=== PATIENT | male | born 1950 | race Caucasian/White ===

== ENCOUNTER → 2022-01-29 10:03 | Outpatient (REF) | payer MEDICARE, OTHER, SELFPAY | LOC: ANHLAB 10:03 | PROVIDERS: PCP Family Medicine; Visit Provider Nurse Practitioner | DX: C44.329 Squamous cell carcinoma of skin of other parts of face (principal); L81.4 Other melanin hyperpigmentation | CPT/HCPCS: 88305; 88331; 88332 ==